=== PATIENT | female | born 1945 | race Two or more races ===

== ENCOUNTER → 2016-12-10 | Outpatient (CLI) | payer MEDICARE, OTHER ==
--- NOTE | 2016-12-10 09:57 | RADRPT ---
PROCEDURE: XR pelvis/right hip. CLINICAL INDICATION: Hip pain TECHNIQUE: AP pelvis/AP and lateral right hip view performed COMPARISON: No prior studies are available for comparison. FINDINGS: There is severe right hip osteoarthrosis and moderate to severe left hip osteoarthrosis. This is ass ociated with joint space narrowing, subchondral sclerosis , subchondral cyst formation and osteophyt osis. There is normal mineralization. No fractures or osseous lesions are identified. The soft ti ssues are unremarkable. IMPRESSION: Severe right hip osteoarthrosis. Moderate to severe left hip osteoarthrosis RPTAT: HGDB .Markus Corona MD, Date Time Electronically viewed and signed by .Markus Corona MD, on 12/10/2016 09:56 .B/
== END | disposition home or self-care (01) ==
LOC: HKI 10:21
PROVIDERS: ATTEND Orthopaedic Surgery
DX: M16.0 Bilateral primary osteoarthritis of hip (principal); M25.551 Pain in right hip
CPT/HCPCS: 73502; G0463

== ENCOUNTER → 2017-04-15 | Outpatient (CLI) | payer MEDICARE, OTHER | END | disposition home or self-care (01) | LOC: HKI 09:56 | PROVIDERS: ATTEND Orthopaedic Surgery | DX: M25.551 Pain in right hip (principal); M16.0 Bilateral primary osteoarthritis of hip | CPT/HCPCS: G0463 ==

== ENCOUNTER 2017-04-21 05:44 | Inpatient (IN) | payer MEDICARE, OTHER ==
[~2017-04-21] VITALS: Ht 154.9 cm; Wt 81.8 kg
[2017-04-21] VITALS (66 sets, daily range): BP systolic 72–160; BP diastolic 40–77; PULSE 76–99; RESP 7–22; Ht 154.9 cm; Wt 81.8 kg
[2017-04-21] MEDS ORDERED: CELECOXIB 400 MG PO X1 DOSE PO ONE (06:00)
[2017-04-21] MEDS: LACTATED RINGER'S 1,000 ML IV SCH ×4 (06:00→18:21)
[2017-04-21] MEDS ORDERED: PAIN COCKTAIL - VANCOMYCIN IRR ONE ×7 (06:00)
[2017-04-21] MEDS ORDERED: ONDANSETRON 4 MG INJ IV SCH (06:00)
[2017-04-21] MEDS ORDERED: TRANEXAMIC ACID 740 MG in SOD CHLORIDE 0.9% 100 ML IVPB ONE (06:00)
[2017-04-21] MEDS ORDERED: traMADOL 50 MG TAB X 1 DOSE PO ONE (06:00)
[2017-04-21] MEDS ORDERED: BUPIVACAINE LIPOSOME/PF 266 MG/20 ML VIAL INFIL ONE (06:00)
[2017-04-21] MEDS ORDERED: TRANEXAMIC ACID IV ONE (06:00)
[2017-04-21] MEDS ORDERED: VANCOMYCIN 1 GM/NS 250 ML X1 BEFORE INCISION IVPB ONE (06:00)
[2017-04-21] MEDS ORDERED: PREGABALIN 300 MG PO X1 PO ONE (06:00)
[2017-04-21] MEDS ORDERED: oxyCODONE (CR) 10 MG TAB [oxyCONTIN] X1 DOSE PO ONE (06:00)
[2017-04-21] MEDS ORDERED: SOD CHLORIDE 0.9% IV ONE (06:00)
[2017-04-21] MEDS ORDERED: ONDANSETRON 4 MG INJ IV ONE (06:30)
[2017-04-21] MEDS ORDERED: VANCOMYCIN 1 GM INJ ONE (06:47)
[2017-04-21] MEDS ORDERED: POLYMYXIN B 500000 UNIT INJ ONE (06:47)
[2017-04-21] MEDS ORDERED: SODIUM CL BACTERIOSTATIC 30 ML INJ ONE (06:48)
[2017-04-21] MEDS ORDERED: HEPARIN 1000 UNITS/ML 10 ML INJ ONE (06:51)
[2017-04-21] MEDS ORDERED: BACITRACIN 50000 UNITS INJ ONE (06:52)
[2017-04-21] MEDS ORDERED: ONDANSETRON 4 MG INJ ONE (06:59)
[2017-04-21] MEDS ORDERED: METOCLOPRAMIDE 10 MG INJ ONE (06:59)
[2017-04-21] MEDS ORDERED: ETOMIDATE 20 MG INJ ONE (06:59)
[2017-04-21] MEDS ORDERED: FENTAnyl 50 MCG/ML VIAL ONE (06:59)
[2017-04-21] MEDS ORDERED: ROCURONIUM 50 MG INJ ONE (06:59)
[2017-04-21] MEDS ORDERED: MIDAZOLAM 1 MG/ML 2 ML INJ ONE (06:59)
[2017-04-21] MEDS ORDERED: DEXAMETHASONE 4 MG/ML 1 ML INJ ONE (07:00)
[2017-04-21] MEDS ORDERED: PROPOFOL 100 ML ONE (07:01)
--- NOTE | 2017-04-21 07:20 | HPN ---
Date/Time of Note Date/Time of Note DATE: 04/21/17 TIME: 07:19 Interval H&P Admission Note Pt. seen H&P reviewed: No system changes No changes from H&P on 04/06/17 by SRUTHI Cherry MD Apr 21, 2017 07:20
[2017-04-21] MEDS ORDERED: LOSA100T7 PO (07:34)
[2017-04-21] MEDS ORDERED: PRED1TAB17 PO (07:34)
[2017-04-21] MEDS ORDERED: HYDROmorphONE 2 MG/ML SYG ONE (07:56)
[2017-04-21] MEDS ORDERED: DIPHENHYDRAMINE 50 MG INJ IV PRN (09:30)
[2017-04-21] MEDS ORDERED: ONDANSETRON 4 MG INJ IV PRN ×2 (09:30→10:30)
[2017-04-21] MEDS ORDERED: MEPERIDINE 25 MG INJ IV PRN (09:30)
[2017-04-21] MEDS ORDERED: METOCLOPRAMIDE 10 MG INJ IV PRN (09:30)
[2017-04-21] MEDS ORDERED: EXPAREL NOTE (BUPIVICAINE LIPOSOMAL) XX SCH (09:30)
[2017-04-21] MEDS ORDERED: HYDROmorphONE (0.2 MG/ML) 10ML SYG IV PRN ×3 (09:30)
--- NOTE | 2017-04-21 10:21 | OPR ---
Date/Time of Note Date/Time of Note DATE: 04/21/17 TIME: 10:20 Operative Report Preoperative Diagnosis Right Hip OA Postoperative Diagnosis Same Operation/Procedure Performed Right SHANIQUE Surgeon: SRUTHI CUENCA MD care assistant: TOM HERNANDEZ Anesthesia: general, spinal Estimated Blood Loss: other Specimens Femoral Head Grafts/Implants Depuy SHANIQUE Complications: None SRUTHI CUENCA MD Apr 21, 2017 10:21
[2017-04-21] MEDS ORDERED: HYDROmorphONE 1 MG/ML SYG IV PRN (10:30)
[2017-04-21] MEDS ORDERED: ASPIRIN (EC) 325 MG TAB PO ONE (10:30)
[2017-04-21] MEDS ORDERED: MAGNESIUM HYDROXIDE 30ML CUP PO PRN (10:30)
[2017-04-21] MEDS ORDERED: NA PHOSPHATE/BIPHOS 133 ML ENEMA PR PRN (10:30)
[2017-04-21] MEDS ORDERED: NACL 0.9% 3 ML SYG IV SCH (10:30)
[2017-04-21] MEDS ORDERED: BISACODYL 10 MG SUPP PR PRN (10:30)
[2017-04-21] MEDS ORDERED: DIPHENHYDRAMINE 25 MG CAP PO PRN (10:30)
[2017-04-21 11:02] LABS: HEMOGLOBIN 9.7 g/dl (12.0-16.0)
[2017-04-21] MEDS ORDERED: EPHEDrine SULFATE 50 MG/5 ML SYG ONE (11:16)
--- NOTE | 2017-04-21 11:46 | RADRPT ---
PROCEDURE: Intraoperative imaging of the right hip with fluoroscopy. CLINICAL INDICATION: Right hip pain. Intraoperative. TECHNIQUE: 2 images of the right hip were obtained in the operating room with portable equipment. COMPARISON: No prior study is available for comparison. FINDINGS: Images demonstrate components of the right hip total arthroplasty. IMPRESSION: 1. Satisfactory intraoperative imaging of the right hip. RPTAT: QQ .Anastacio Cat MD, MD Date Time Electronically viewed and signed by .Anastacio Cat MD, on 04/21/2017 11:45 .R/
[2017-04-21] MEDS: ACETAMINOPHEN 1000MG/100ML IV 100 ML IVPB SCH ×2 (12:29→18:04)
[2017-04-21] MEDS: traMADol 50 MG TAB PO SCH ×2 (12:39→13:44)
[2017-04-21 12:51] LABS: CALCIUM 9.3 mg/dl (8.4-10.2); CREATININE 0.65 mg/dl (0.44-1.00); POTASSIUM 3.2 mmol/L (3.5-5.1)
--- NOTE | 2017-04-21 12:56 | RADRPT ---
PROCEDURE: XR pelvis CLINICAL INDICATION: Postop TECHNIQUE: AP pelvis is available for review. COMPARISON: None available FINDINGS: A non cemented right hip hemiarthroplasty arthroplasty is present in near anatomic alignment without acute radiographic abnormality. Recent surgical changes seen in the soft tissues. IMPRESSION: 1. A noncemented right hip hemiarthroplasty in near anatomic alignment without acute radiographic a bnormality RPTAT: HH .Filipe Christie MD, MD Date Time Electronically viewed and signed by .Filipe Christie MD, MD on 04/21/2017 12:55 .d/
[2017-04-21] MEDS ORDERED: NALOXONE (0.4 MG/ML) INJ ONE ×3 (13:19→13:52)
--- NOTE | 2017-04-21 13:21 | PN ---
Date/Time of Note Date/Time of Note DATE: 04/21/17 TIME: 13:19 Assessment/Plan Lines/Catheters IV Catheter Type (from Nrsg): Peripheral IV Veronica in Place (from Nrsg): Yes Assessment/Plan Assessment/Plan S/P Right SHANIQUE. Stable. -Drain -ABX -Pain meds -ASA/SCDs -OOB with PT -Hip precautions -Abduction pillow Subjective 24 Hr Interval Summary Resting comfortably. Minimal pain. Exam/Review of Systems Vital Signs Vitals Vital Signs Date Time Temp Pulse Resp B/P Pulse Ox O2 Delivery O2 Flow Rate FiO2 04/21/17 11:56 97.4 04/21/17 11:55 84 20 72/46 93 Nasal Cannula 2.0 Exam Free Text/Dictation Hemovac: 30 cc Leg lengths equal Dressing dry Thigh soft 5/5 Quadriceps, Tibialis Anterior, EHL, Gastroc Soleus, Peroneals Normal sensation Palpable DP/PT, CR < 2 Sec No distal edema XRAYS: Right SHANIQUE in good position. Head located in acetabulum. Results Result Diagram: 04/21/17 1050 04/21/17 1050 SRUTHI CUENCA MD Apr 21, 2017 13:20
--- NOTE | 2017-04-21 13:25 | CONS ---
Date/Time of Note Date/Time of Note DATE: 04/21/17 TIME: 13:18 Assessment/Plan Assessment/Plan Additional Assessment/Plan 1. Post op right hip replacement. 2. HBP 3. Reduced respiratory rate, if persists after narcan is given will need icu monitoring, ABG ordered 4. Hx CLL 5. Hx PMR was on steroids, was given Decadron perioperatively 6. Hx carotid dz and bilateral carotid endartectomy 7. [place] preop revealed no ischemia 8. K was low, will repelete Consultation Date/Type/Reason Admit Date/Time Apr 21, 2017 at 05:44 Date of Consultation: Apr 21, 2017 Type of Consultation: Medical Reason for Consultation Post op right hip replacement Subjective hx not possible: other (lethargic, easily arroused) Respiratory: No cough, No shortness of breath Cardiovascular: No chest pain Gastrointestinal: no complaints Past Surgical History Past Surgical Hx: other (Hx bilateral carotid dz, s/p surgery, HBP, Fibromyalgia, Hyperlipidemia, CLL) Social History Smoking Status: Never smoker Exam/Review of Systems Vital Signs Vitals Vital Signs Date Time Temp Pulse Resp B/P Pulse Ox O2 Delivery O2 Flow Rate FiO2 04/21/17 11:56 97.4 04/21/17 11:55 84 20 72/46 93 Nasal Cannula 2.0 Exam Neck: No jvd Respiratory: clear to auscultation Cardiovascular: regular rate and rhythm Gastrointestinal: soft Extremities: No edema (and no calf tend) Results Result Diagram: 04/21/17 1050 04/21/17 1050 Results 24 hrs Laboratory Tests Test 04/21/17 10:50 Hemoglobin 9.7 L Hematocrit 30.0 L Sodium Level 141 Potassium Level 3.2 L Chloride Level 106 Carbon Dioxide Level 23 Anion Gap 15 Blood Urea Nitrogen 21 H Creatinine 0.65 Glucose Level 198 Calcium Level 9.3 Medications Medications Current Medications Lactated Ringer's (Lr) 1,000 ml @ 100 mls/hr Q10H IV ; Start 04/21/17 at 06:00 ; Stop 04/21/17 at 22:00 Miscellaneous Information 1 ea NOTE XX ; Start 04/21/17 at 09:30; Stop 04/21/17 at 22:00 Ondansetron HCl (Zofran Inj) 4 mg ONCE IV ; Start 04/21/17 at 06:00; Stop at 20:00 Losartan Potassium (Cozaar) 100 mg DAILY PO ; Start 04/22/17 at 09:00 Prednisone 1.5 mg 1.5 mg DAILY PO ; Start 04/22/17 at 09:00 Lactated Ringer's (Lr) 1,000 ml @ 125 mls/hr Q8H IV Last administered on 11:13; Admin Dose 125 MLS/HR; Start 04/21/17 at 10:21 Celecoxib 200 mg 200 mg DAILY PO ; Start 04/22/17 at 09:00 Acetaminophen (Ofirmev 1000mg/ 100ml Iv) 100 ml @ 400 mls/hr Q6 IVPB Last administered on 04/21/17 12:29; Admin Dose 400 MLS/HR; Start 04/21/17 at 12:00 ; Stop 04/22/17 at 11:59 Tramadol HCl (Ultram) 50 mg Q6 PO Last administered on 04/21/17 12:39; Admin Dose 50 MG; Start 04/21/17 at 12:00; Stop 04/24/17 at 11:59 Oxycodone HCl (Roxicodone) 5 mg Q4H PRN PO PAIN LEVEL 1-3; Start 04/21/17 at 10 :30 Oxycodone HCl (Roxicodone) 10 mg Q4H PRN PO PAIN LEVEL 4-7; Start 04/21/17 at 10:30 Hydromorphone HCl 1 mg 1 mg Q3H PRN IV PAIN LEVEL 8-10; Start 04/21/17 at 10:30 Vancomycin HCl (Vancocin) 250 ml @ 125 mls/hr Q12 IVPB ; Start 04/21/17 at 21: 00; Stop 04/22/17 at 10:59 Ondansetron HCl (Zofran Inj) 4 mg Q6H PRN IV NAUSEA AND/OR VOMITING; Start at 10:30 Bisacodyl (Dulcolax Supp) 10 mg Q12H PRN [place] CONSTIPATION; Start 04/21/17 at 10: 30 Magnesium Hydroxide (Milk Of Mag) 30 ml BID PRN PO CONSTIPATION; Start at 10:30 Sodium Biphosphate/ Sodium Phosphate (Fleet Enema) 133 ml DAILY PRN [place] CONSTIPATION; Start 04/21/17 at 10:30 Docusate Sodium (Colace) 100 mg BID PO ; Start 04/21/17 at 21:00 Diphenhydramine HCl (Benadryl) 25 mg Q6H PRN PO PRURITUS; Start 04/21/17 at 10: 30 Aspirin (Ecotrin) 325 mg BID PO ; Start 04/22/17 at 09:00 Pantoprazole (Protonix Tab) 40 mg BID@06,18 PO ; Start 04/21/17 at 18:00 JOANN MALONE MD Apr 21, 2017 13:25
[2017-04-21] MEDS ORDERED: NALOXONE (0.4 MG/ML) INJ IV STA (13:30)
[2017-04-21] MEDS ORDERED: POTASSIUM CHLORIDE 20 MEQ POWDER FOR ORAL SOLN PO SCH (13:30)
[2017-04-21 13:58] LABS: AADO2 Arterial 96.6 mmHg (7.0-24.0); Allen Test ACCEPTAB; Arterial Base Excess -0.9 mmol/L (-3.0-3); Arterial COHb 0.3 % (0.0-3.0); Arterial Fraction of Oxyhgb 98.2 % (93.0-99.0); Arterial HCO3 24.4 mmol/L (22.0-26.0); Arterial MetHb 0.3 % (0.0-1.5); Arterial Total Hemglobin 10.4 g/dl (12.0-18.0); MODE MASK - SIMPLE
[2017-04-21] MEDS ORDERED: POTASSIUM CHLORIDE 250 ML IVPB ONE (14:30)
--- NOTE | 2017-04-21 14:47 | CONS ---
Date/Time of Note Date/Time of Note DATE: 04/21/17 TIME: 14:43 Assessment/Plan Assessment/Plan Additional Assessment/Plan ABG was reviewed done a short while ago which is not showing any evidence of hypercapnia. Assessment recommendations; 1. Patient admitted for right hip surgery then developed. Hypoventilation with interval improvement. 2. History of seizure, hypertension, fibromyalgia, chronic steroid use. Patient to be transferred to ICU. I would recommend starting on BiPAP 10/5 with a backup rate of 18. Continue current medications. Consultation Date/Type/Reason Admit Date/Time Apr 21, 2017 at 05:44 Date of Consultation: Apr 21, 2017 Type of Consultation: Pulmonary/critical care Reason for Consultation Pulmonary consultation requested for evaluation of postop hypoventilation. History of presenting any; patient is a pleasant 71-year-old white lady who was admitted for elective right hip surgery. The patient surgery was uneventful however. The patient became mildly hypoxemic causing O2 desaturation patient was given Narcan with significant improvement in mental status. By the time I saw the patient the patient is on simple facemask and is able to talk and give some history by herself, she denies any shortness of breath. Any chest pain. Nausea vomiting. Past medical history; 1. Patient with a history of CLL. 2. Fibromyalgia. 3. History of bilateral carotid endarterectomy. 4. Hyperlipidemia. 5. Hypertension. Medications; reviewed. Allergies; penicillin. Social history; patient never smoked. Family history; noncontributory. Occupational history; currently not available. Review of systems; limited review of system could be obtained. Patient denies any headache, any nausea vomiting. Denies any shortness of breath. General exam; elderly woman, awake alert currently in no distress. Respiratory: No cough, No shortness of breath Cardiovascular: No chest pain Gastrointestinal: no complaints Past Surgical History Past Surgical Hx: other (Hx bilateral carotid dz, s/p surgery, HBP, Fibromyalgia, Hyperlipidemia, CLL) Social History Smoking Status: Never smoker Exam/Review of Systems Vital Signs Vitals Vital Signs Date Time Temp Pulse Resp B/P Pulse Ox O2 Delivery O2 Flow Rate FiO2 04/21/17 14:23 Simple Mask 8.0 04/21/17 12:20 84 14 105/44 97 04/21/17 11:56 97.4 Exam HEENT exam; supple neck, no JVD. No lymphadenopathy. Midline trachea. No thyromegaly. Patient has fair dentition. Pupils are midsize and reactive to light bilaterally. Chest exam; diminished but clear breath sound. S1-S2 audible, no murmurs. Regular rhythm. Abdomen exam is; soft, nontender. No organomegaly. Bowel sounds audible. Extremity exam; is a dressing applied over the right hip area. No peripheral edema. Pulses 1+ bilaterally. No clubbing. [employer] examination; no focal motor deficit. Results Result Diagram: 04/21/17 1050 04/21/17 1050 Results 24 hrs Laboratory Tests Test 04/21/17 10:50 04/21/17 13:15 Hemoglobin 9.7 L Hematocrit 30.0 L Sodium Level 141 Potassium Level 3.2 L Chloride Level 106 Carbon Dioxide Level 23 Anion Gap 15 Blood Urea Nitrogen 21 H Creatinine 0.65 Glucose Level 198 Calcium Level 9.3 Blood Gas Specimen Source Blood arterial Arterial Blood Date Drawn 04/21/2017 1:40:05 PM Arterial Blood pH (Temp corrected) 7.371 Arterial Blood pCO2 (Temp correct) 43.0 Arterial Blood pO2 (Temp corrected) 175.3 H Arterial Blood HCO3 24.4 Arterial Blood Base Excess -0.9 Arterial Blood Oxygen Saturation 98.8 Sriram Test ACCEPTAB Arterial Blood Gas Puncture Site Right Radial Arterial Blood Carboxyhemoglobin 0.3 Arterial Blood Methemoglobin 0.3 Blood Gas A-a O2 Differential 96.6 H Oxyhemoglobin Percent 98.2 Total Hemoglobin 10.4 L Blood Gas Temperature 37.0 Blood Gas Modality MASK - SIMPLE FiO2 45.0 Blood Gas Notified Whom JLD Blood Gas Notified Time 04/21/2017 1:58:08 PM Medications Medications Current Medications Lactated Ringer's (Lr) 1,000 ml @ 100 mls/hr Q10H IV ; Start 04/21/17 at 06:00 ; Stop 04/21/17 at 22:00 Miscellaneous Information 1 ea NOTE XX ; Start 04/21/17 at 09:30; Stop 04/21/17 at 22:00 Ondansetron HCl (Zofran Inj) 4 mg ONCE IV ; Start 04/21/17 at 06:00; Stop at 20:00 Losartan Potassium (Cozaar) 100 mg DAILY PO ; Start 04/22/17 at 09:00 Prednisone 1.5 mg 1.5 mg DAILY PO ; Start 04/22/17 at 09:00 Lactated Ringer's (Lr) 1,000 ml @ 125 mls/hr Q8H IV Last administered on 11:13; Admin Dose 125 MLS/HR; Start 04/21/17 at 10:21 Celecoxib 200 mg 200 mg DAILY PO ; Start 04/22/17 at 09:00 Acetaminophen (Ofirmev 1000mg/ 100ml Iv) 100 ml @ 400 mls/hr Q6 IVPB Last administered on 04/21/17 12:29; Admin Dose 400 MLS/HR; Start 04/21/17 at 12:00 ; Stop 04/22/17 at 11:59 Tramadol HCl (Ultram) 50 mg Q6 PO Last administered on 04/21/17 12:39; Admin Dose 50 MG; Start 04/21/17 at 12:00; Stop 04/24/17 at 11:59 Oxycodone HCl (Roxicodone) 5 mg Q4H PRN PO PAIN LEVEL 1-3; Start 04/21/17 at 10 :30 Oxycodone HCl (Roxicodone) 10 mg Q4H PRN PO PAIN LEVEL 4-7; Start 04/21/17 at 10:30 Hydromorphone HCl 1 mg 1 mg Q3H PRN IV PAIN LEVEL 8-10; Start 04/21/17 at 10:30 Vancomycin HCl (Vancocin) 250 ml @ 125 mls/hr Q12 IVPB ; Start 04/21/17 at 21: 00; Stop 04/22/17 at 10:59 Ondansetron HCl (Zofran Inj) 4 mg Q6H PRN IV NAUSEA AND/OR VOMITING; Start at 10:30 Bisacodyl (Dulcolax Supp) 10 mg Q12H PRN [place] CONSTIPATION; Start 04/21/17 at 10: 30 Magnesium Hydroxide (Milk Of Mag) 30 ml BID PRN PO CONSTIPATION; Start at 10:30 Sodium Biphosphate/ Sodium Phosphate (Fleet Enema) 133 ml DAILY PRN [place] CONSTIPATION; Start 04/21/17 at 10:30 Docusate Sodium (Colace) 100 mg BID PO ; Start 04/21/17 at 21:00 Diphenhydramine HCl (Benadryl) 25 mg Q6H PRN PO PRURITUS; Start 04/21/17 at 10: 30 Aspirin (Ecotrin) 325 mg BID PO ; Start 04/22/17 at 09:00 Pantoprazole 40 mg 40 mg BID@06,18 PO ; Start 04/21/17 at 18:00 Potassium Chloride (KCl 40 MEQ/250 ML NS) 250 ml @ 62.5 mls/hr ONCE ONCE IVPB ; Start 04/21/17 at 14:30; Stop 04/21/17 at 18:29 Potassium Chloride (Potassium Chloride Pwd/Soln) 40 meq ONCE PO ; Start at 13:30; Stop 04/21/17 at 23:59 REGLA GRIJALVA Apr 21, 2017 14:47
[2017-04-21] MEDS ORDERED: SOD CHLORIDE 0.9% 500 ML IV ONE (16:30)
[2017-04-21] MEDS: PANTOPRAZOLE (EC) 40 MG TAB PO SCH (18:00)
[2017-04-21] MEDS: DOCUSATE SODIUM 100 MG CAP PO SCH (21:00)
[2017-04-21] MEDS: VANCOMYCIN 1 GM (PMX) 250 ML IVPB SCH (21:21)
[2017-04-22] VITALS (31 sets, daily range): BP systolic 86–147; BP diastolic 35–95; PULSE 73–94; RESP 8–18
[2017-04-22] MEDS: ACETAMINOPHEN 1000MG/100ML IV 100 ML IVPB SCH ×2 (00:20→06:26)
[2017-04-22] MEDS: LACTATED RINGER'S 1,000 ML IV SCH (02:25)
[2017-04-22 05:31] LABS: HEMATOCRIT 26.7 % (37.0-47.0)
[2017-04-22 05:32] LABS: CALCIUM 8.8 mg/dl (8.4-10.2); CREATININE 0.71 mg/dl (0.44-1.00)
[2017-04-22 05:37] LABS: MAGNESIUM 1.7 mg/dl (1.7-2.5); PHOSPHORUS 4.6 mg/dl (2.5-4.9)
[2017-04-22] MEDS: PANTOPRAZOLE (EC) 40 MG TAB PO SCH ×2 (06:26→18:11)
[2017-04-22] MEDS: traMADol 50 MG TAB PO SCH ×5 (06:26→23:37)
--- NOTE | 2017-04-22 07:53 | CONS ---
Date/Time of Note Date/Time of Note DATE: 04/22/17 TIME: 07:51 Assessment/Plan Assessment/Plan Additional Assessment/Plan 1. Doing well post op right hip replacement. 2. Respiratory status now nl 3. BP is controlled 4. Can transfer to ortho floor Consultation Date/Type/Reason Admit Date/Time Apr 21, 2017 at 05:44 Initial Consult Date 04/21/17 Type of Consultation: Pulmonary/critical care Detailed Summary Respiratory: No cough, No shortness of breath Cardiovascular: No chest pain, No lightheadedness Gastrointestinal: no complaints Genitourinary: other (lópez in place) Musculoskeletal: bone/joint pain (mild righjt hip pain) Exam/Review of Systems Vital Signs Vitals Vital Signs Date Time Temp Pulse Resp B/P Pulse Ox O2 Delivery O2 Flow Rate FiO2 04/22/17 06:30 90 15 123/95 100 Nasal Cannula 04/22/17 04:30 2.0 04/22/17 04:00 98.0 04/22/17 03:35 30 Intake and Output 04/21/17 04/21/17 04/22/17 15:00 23:00 07:00 Intake Total 2025 ml 1175 ml 1275 ml Output Total 820 ml 460 ml 360 ml Balance 1205 ml 715 ml 915 ml Exam Neck: No jvd Respiratory: clear to auscultation Gastrointestinal: soft Extremities: No tenderness (bilat, trace pedal edema bilat) Results Result Diagram: 04/22/17 0400 04/22/17 0400 Results 24 hrs Laboratory Tests Test 04/21/17 10:50 04/21/17 13:15 04/22/17 04:00 04/22/17 05:50 Hemoglobin 9.7 L 8.0 L Hematocrit 30.0 L 26.7 L Sodium Level 141 137 Potassium Level 3.2 L 5.0 Chloride Level 106 105 Carbon Dioxide Level 23 25 Anion Gap 15 12 Blood Urea Nitrogen 21 H 20 Creatinine 0.65 0.71 Glucose Level 198 108 # Calcium Level 9.3 8.8 Blood Gas Specimen Source Blood arterial Arterial Blood Date Drawn 04/21/2017 1:40:05 PM Arterial Blood pH (Temp corrected) 7.371 Arterial Blood pCO2 (Temp correct) 43.0 Arterial Blood pO2 (Temp corrected) 175.3 H Arterial Blood HCO3 24.4 Arterial Blood Base Excess -0.9 Arterial Blood Oxygen Saturation 98.8 Sriram Test ACCEPTAB Arterial Blood Gas Puncture Site Right Radial Arterial Blood Carboxyhemoglobin 0.3 Arterial Blood Methemoglobin 0.3 Blood Gas A-a O2 Differential 96.6 H Oxyhemoglobin Percent 98.2 Total Hemoglobin 10.4 L Blood Gas Temperature 37.0 Blood Gas Modality MASK - SIMPLE FiO2 45.0 Blood Gas Notified Whom JLD Blood Gas Notified Time 04/21/2017 1:58:08 PM Phosphorus Level 4.6 Magnesium Level 1.7 Lab Scanned Report REFERENCE LAB Medications Medications Current Medications Losartan Potassium (Cozaar) 100 mg DAILY PO ; Start 04/22/17 at 09:00 Prednisone 1.5 mg 1.5 mg DAILY PO ; Start 04/22/17 at 09:00 Lactated Ringer's (Lr) 1,000 ml @ 125 mls/hr Q8H IV Last administered on 02:25; Admin Dose 125 MLS/HR; Start 04/21/17 at 10:21 Celecoxib 200 mg 200 mg DAILY PO ; Start 04/22/17 at 09:00 Acetaminophen (Ofirmev 1000mg/ 100ml Iv) 100 ml @ 400 mls/hr Q6 IVPB Last administered on 04/22/17 06:26; Admin Dose 400 MLS/HR; Start 04/21/17 at 12:00 ; Stop 04/22/17 at 11:59 Tramadol HCl (Ultram) 50 mg Q6 PO Last administered on 04/22/17 06:26; Admin Dose 50 MG; Start 04/21/17 at 12:00; Stop 04/24/17 at 11:59 Oxycodone HCl (Roxicodone) 5 mg Q4H PRN PO PAIN LEVEL 1-3; Start 04/21/17 at 10 :30 Oxycodone HCl (Roxicodone) 10 mg Q4H PRN PO PAIN LEVEL 4-7; Start 04/21/17 at 10:30 Hydromorphone HCl 1 mg 1 mg Q3H PRN IV PAIN LEVEL 8-10; Start 04/21/17 at 10:30 Vancomycin HCl (Vancocin) 250 ml @ 125 mls/hr Q12 IVPB Last administered on 21:21; Admin Dose 125 MLS/HR; Start 04/21/17 at 21:00; Stop 04/22/17 at 10:59 Ondansetron HCl (Zofran Inj) 4 mg Q6H PRN IV NAUSEA AND/OR VOMITING; Start at 10:30 Bisacodyl (Dulcolax Supp) 10 mg Q12H PRN [place] CONSTIPATION; Start 04/21/17 at 10: 30 Magnesium Hydroxide (Milk Of Mag) 30 ml BID PRN PO CONSTIPATION; Start at 10:30 Sodium Biphosphate/ Sodium Phosphate (Fleet Enema) 133 ml DAILY PRN [place] CONSTIPATION; Start 04/21/17 at 10:30 Docusate Sodium (Colace) 100 mg BID PO ; Start 04/21/17 at 21:00 Diphenhydramine HCl (Benadryl) 25 mg Q6H PRN PO PRURITUS; Start 04/21/17 at 10: 30 Aspirin (Ecotrin) 325 mg BID PO ; Start 04/22/17 at 09:00 Pantoprazole (Protonix Tab) 40 mg BID@,18 PO Last administered on 04/22/17t 06:26; Admin Dose 40 MG; Start 04/21/17 at 18:00 JOANN MALONE MD Apr 22, 2017 07:53
[2017-04-22] MEDS: LOSARTAN 50 MG TAB PO SCH (09:00)
--- NOTE | 2017-04-22 09:02 | PN ---
Date/Time of Note Date/Time of Note DATE: 04/22/17 TIME: 09:00 Assessment/Plan Lines/Catheters IV Catheter Type (from Nrsg): Peripheral IV Veronica in Place (from Nrsg): Yes Assessment/Plan Assessment/Plan POD # 1. Stable. -Drain removed -Ok to transfer to [address] [place] [address] with PT -Hip precautions -Pain meds -ASA/SCDs -D/C planning (To [facility] in next 2 days) Subjective 24 Hr Interval Summary Was in ICU overnight because of low respiratiory rate. Now doing well. No events overnight. Minimal pain. Exam/Review of Systems Vital Signs Vitals Vital Signs Date Time Temp Pulse Resp B/P Pulse Ox O2 Delivery O2 Flow Rate FiO2 04/22/17 07:56 100 2.0 04/22/17 06:30 90 15 123/95 Nasal Cannula 04/22/17 04:00 98.0 04/22/17 03:35 30 Intake and Output 04/21/17 04/21/17 04/22/17 15:00 23:00 07:00 Intake Total 2025 ml 1175 ml 1275 ml Output Total 820 ml 460 ml 360 ml Balance 1205 ml 715 ml 915 ml Exam Free Text/Dictation Hemovac: 170 Dressing dry Thigh soft 5/5 Quadriceps, Tibialis Anterior, EHL, Gastroc Soleus, Peroneals Normal sensation Palpable DP/PT, CR < 2 Sec No distal edema Results Result Diagram: 04/22/1739904/22/17399 SRUTHI CUENCA MD Apr 22, 2017 09:02
[2017-04-22] MEDS: ASPIRIN (EC) 325 MG TAB PO SCH ×2 (09:16→20:23)
[2017-04-22] MEDS: DOCUSATE SODIUM 100 MG CAP PO SCH ×2 (09:16→20:23)
[2017-04-22] MEDS: predniSONE 1 MG TAB PO SCH (09:16)
[2017-04-22] MEDS: CELECOXIB 200 MG CAP PO SCH (09:17)
[2017-04-22] MEDS: VANCOMYCIN 1 GM (PMX) 250 ML IVPB SCH (09:32)
--- NOTE | 2017-04-22 10:30 | CONS ---
Date/Time of Note Date/Time of Note DATE: 04/22/17 TIME: 10:28 Assessment/Plan Assessment/Plan Additional Assessment/Plan Assessment recommendations; 1. Patient admitted for elective right total hip replacement patient developed hypoxemia and hypoventilation postop was transferred to ICU maintained on BiPAP with marked overall clinical improvement no. 2. Multiple other comorbidities including seizure disorder, hypertension, fibromyalgia and mild chronic steroid use. Continue current treatment. Patient can be transferred to the medical floor. Consultation Date/Type/Reason Admit Date/Time Apr 21, 2017 at 05:44 Initial Consult Date 04/21/17 Type of Consultation: Pulmonary/critical care 24 HR Interval Summary Free Text/Dictation Patient condition is markedly improved. She is completely awake alert. Has required intermittent BiPAP overnight. No maintained on nasal cannula. Patient denies any shortness of breath. General examination; elderly woman, awake alert currently in no distress. Exam/Review of Systems Vital Signs Vitals Vital Signs Date Time Temp Pulse Resp B/P Pulse Ox O2 Delivery O2 Flow Rate FiO2 04/22/17 08:00 79 04/22/17 07:56 100 2.0 04/22/17 06:30 15 123/95 Nasal Cannula 04/22/17 04:00 98.0 04/22/17 03:35 30 Intake and Output 04/21/17 04/21/17 04/22/17 14:59 22:59 06:59 Intake Total 2025 ml 800 ml 1650 ml Output Total 770 ml 460 ml 410 ml Balance 1255 ml 340 ml 1240 ml Exam HEENT exam is; supple neck, no JVD. No lymphadenopathy. Midline trachea. No thyromegaly. Patient bilateral well-healed carotid scars. Dentition is fair. Pupils are small bilaterally. Chest examined; clear to ulceration. S1-S2 audible, no murmurs. Regular rhythm. Abdomen exam; soft, nontender. No organomegaly. Bowel sounds audible. Extremity exam; no peripheral edema. There is a dressing applied over the right hip area. Pulses 1+ bilaterally. [employer] examination; no deficit. Results Result Diagram: 04/22/17 0400 04/22/17 0400 Results 24 hrs Laboratory Tests Test 04/21/17 10:50 04/21/17 13:15 04/22/17 04:00 04/22/17 05:50 Hemoglobin 9.7 L 8.0 L Hematocrit 30.0 L 26.7 L Sodium Level 141 137 Potassium Level 3.2 L 5.0 Chloride Level 106 105 Carbon Dioxide Level 23 25 Anion Gap 15 12 Blood Urea Nitrogen 21 H 20 Creatinine 0.65 0.71 Glucose Level 198 108 # Calcium Level 9.3 8.8 Blood Gas Specimen Source Blood arterial Arterial Blood Date Drawn 04/21/2017 1:40:05 PM Arterial Blood pH (Temp corrected) 7.371 Arterial Blood pCO2 (Temp correct) 43.0 Arterial Blood pO2 (Temp corrected) 175.3 H Arterial Blood HCO3 24.4 Arterial Blood Base Excess -0.9 Arterial Blood Oxygen Saturation 98.8 Sriram Test ACCEPTAB Arterial Blood Gas Puncture Site Right Radial Arterial Blood Carboxyhemoglobin 0.3 Arterial Blood Methemoglobin 0.3 Blood Gas A-a O2 Differential 96.6 H Oxyhemoglobin Percent 98.2 Total Hemoglobin 10.4 L Blood Gas Temperature 37.0 Blood Gas Modality MASK - SIMPLE FiO2 45.0 Blood Gas Notified Whom JLD Blood Gas Notified Time 04/21/2017 1:58:08 PM Phosphorus Level 4.6 Magnesium Level 1.7 Lab Scanned Report REFERENCE LAB Medications Medications Current Medications Losartan Potassium (Cozaar) 100 mg DAILY PO ; Start 04/22/17 at 09:00 Prednisone 1.5 mg 1.5 mg DAILY PO Last administered on 04/22/17 09:16; Admin Dose 1.5 MG; Start 04/22/17 at 09:00 Lactated Ringer's (Lr) 1,000 ml @ 125 mls/hr Q8H IV Last administered on 02:25; Admin Dose 125 MLS/HR; Start 04/21/17 at 10:21 Celecoxib 200 mg 200 mg DAILY PO Last administered on 04/22/17 09:17; Admin Dose 200 MG; Start 04/22/17 at 09:00 Acetaminophen (Ofirmev 1000mg/ 100ml Iv) 100 ml @ 400 mls/hr Q6 IVPB Last administered on 04/22/17 06:26; Admin Dose 400 MLS/HR; Start 04/21/17 at 12:00 ; Stop 04/22/17 at 11:59 Tramadol HCl (Ultram) 50 mg Q6 PO Last administered on 04/22/17 06:26; Admin Dose 50 MG; Start 04/21/17 at 12:00; Stop 04/24/17 at 11:59 Oxycodone HCl (Roxicodone) 5 mg Q4H PRN PO PAIN LEVEL 1-3; Start 04/21/17 at 10 :30 Oxycodone HCl (Roxicodone) 10 mg Q4H PRN PO PAIN LEVEL 4-7; Start 04/21/17 at 10:30 Hydromorphone HCl 1 mg 1 mg Q3H PRN IV PAIN LEVEL 8-10; Start 04/21/17 at 10:30 Vancomycin HCl (Vancocin) 250 ml @ 125 mls/hr Q12 IVPB Last administered on 09:32; Admin Dose 125 MLS/HR; Start 04/21/17 at 21:00; Stop 04/22/17 at 10:59 Ondansetron HCl (Zofran Inj) 4 mg Q6H PRN IV NAUSEA AND/OR VOMITING; Start at 10:30 Bisacodyl (Dulcolax Supp) 10 mg Q12H PRN [place] CONSTIPATION; Start 04/21/17 at 10: 30 Magnesium Hydroxide (Milk Of Mag) 30 ml BID PRN PO CONSTIPATION; Start at 10:30 Sodium Biphosphate/ Sodium Phosphate (Fleet Enema) 133 ml DAILY PRN [place] CONSTIPATION; Start 04/21/17 at 10:30 Docusate Sodium (Colace) 100 mg BID PO Last administered on 04/22/17 09:16; Admin Dose 100 MG; Start 04/21/17 at 21:00 Diphenhydramine HCl (Benadryl) 25 mg Q6H PRN PO PRURITUS; Start 04/21/17 at 10: 30 Aspirin (Ecotrin) 325 mg BID PO Last administered on 04/22/17 09:16; Admin Dose 325 MG; Start 04/22/17 at 09:00 Pantoprazole (Protonix Tab) 40 mg BID@06,18 PO Last administered on 04/22/17 06:26; Admin Dose 40 MG; Start 04/21/17 at 18:00 REGLA GRIJALVA Apr 22, 2017 10:30
--- NOTE | 2017-04-22 13:25 | PN ---
Date/Time of Note Date/Time of Note DATE: 04/22/17 TIME: 13:20 Assessment/Plan VTE Prophylaxis VTE Prophylaxis Intervention: SCD's Lines/Catheters IV Catheter Type (from Nrsg): Saline Lock Urinary Cath still in place: Yes Subjective 24 Hr Interval Summary Free Text/Dictation Anesthesia Note: A 71 year female s/p hip replacement under GA and spinal pod #1is doing fine, has pain 5/10, no n/V, headache, itching, back pain. i was called yesterday when pt was terrance paz that she is hypoventilating with intemittent recovery, i saw the pt. she was awakw,and told me she hasnr slpet and she sleepy and tired, poss sleeep apnea per her son at bed side. per primary care pt was sent to ICU on bipap, ABG normal, no co2 accomulation. pt is going back to floor today Exam/Review of Systems Vital Signs Vitals Vital Signs Date Time Temp Pulse Resp B/P Pulse Ox O2 Delivery O2 Flow Rate FiO2 04/22/17 10:00 81 10 106/46 92 Nasal Cannula 04/22/17 08:00 97.7 04/22/17 07:56 2.0 04/22/17 03:35 30 Intake and Output 04/21/17 04/21/17 04/22/17 15:00 23:00 07:00 Intake Total 2025 ml 1175 ml 1275 ml Output Total 820 ml 460 ml 460 ml Balance 1205 ml 715 ml 815 ml Results Result Diagram: 04/22/17 0400 04/22/17 0400 Results 24 hrs Laboratory Tests Test 04/22/17 04:00 04/22/17 05:50 Hemoglobin 8.0 L Hematocrit 26.7 L Sodium Level 137 Potassium Level 5.0 Chloride Level 105 Carbon Dioxide Level 25 Anion Gap 12 Blood Urea Nitrogen 20 Creatinine 0.71 Glucose Level 108 # Calcium Level 8.8 Phosphorus Level 4.6 Magnesium Level 1.7 Lab Scanned Report REFERENCE LAB Medications Medications Current Medications Losartan Potassium (Cozaar) 100 mg DAILY PO ; Start 04/22/17 at 09:00 Prednisone (Prednisone) 1.5 mg DAILY PO Last administered on 04/22/17t 09:16; Admin Dose 1.5 MG; Start 04/22/17 at 09:00 Celecoxib (Celebrex) 200 mg DAILY PO Last administered on 04/22/17 09:17; Admin Dose 200 MG; Start 04/22/17 at 09:00 Tramadol HCl (Ultram) 50 mg Q6 PO Last administered on 04/22/17 12:59; Admin Dose 50 MG; Start 04/21/17 at 12:00; Stop 04/24/17 at 11:59 Oxycodone HCl (Roxicodone) 5 mg Q4H PRN PO PAIN LEVEL 1-3; Start 04/21/17 at 10 :30 Oxycodone HCl (Roxicodone) 10 mg Q4H PRN PO PAIN LEVEL 4-7; Start 04/21/17 at 10:30 Hydromorphone HCl (Dilaudid) 1 mg Q3H PRN IV PAIN LEVEL 8-10 Last administered on 04/22/17 12:24; Admin Dose 1 MG; Start 04/21/17 at 10:30 Ondansetron HCl (Zofran Inj) 4 mg Q6H PRN IV NAUSEA AND/OR VOMITING; Start at 10:30 Bisacodyl (Dulcolax Supp) 10 mg Q12H PRN [place] CONSTIPATION; Start 04/21/17 at 10: 30 Magnesium Hydroxide (Milk Of Mag) 30 ml BID PRN PO CONSTIPATION; Start at 10:30 Sodium Biphosphate/ Sodium Phosphate (Fleet Enema) 133 ml DAILY PRN [place] CONSTIPATION; Start 04/21/17 at 10:30 Docusate Sodium (Colace) 100 mg BID PO Last administered on 04/22/17 09:16; Admin Dose 100 MG; Start 04/21/17 at 21:00 Diphenhydramine HCl (Benadryl) 25 mg Q6H PRN PO PRURITUS; Start 04/21/17 at 10: 30 Aspirin (Ecotrin) 325 mg BID PO Last administered on 04/22/17 09:16; Admin Dose 325 MG; Start 04/22/17 at 09:00 Pantoprazole (Protonix Tab) 40 mg BID@18 PO Last administered on 04/22/17 06:26; Admin Dose 40 MG; Start 04/21/17 at 18:00 DEMETRICE BERNAL MD Apr 22, 2017 13:25
--- NOTE | 2017-04-22 17:55 | OPR ---
Date/Time of Note Date/Time of Note DATE: 04/22/17 TIME: 17:51 Operative Report Preoperative Diagnosis Right Hip OA Postoperative Diagnosis Same Operation Performed Right SHANIQUE Surgeon: SRUTHI CUENCA MD training assistant: TOM HERNANDEZ Anesthesia: general, spinal Estimated Blood Loss: other Specimens Femoral Head Grafts/Implants Depuy SHANIQUE Complications: None Procedure Description DATE: 04/21/2017 PREOPERATIVE DIAGNOSIS: Right hip osteoarthritis POSTOPERATIVE DIAGNOSIS: Right hip osteoarthritis OPERATION PERFORMED: Right total hip arthroplasty. SURGEON: Sruthi Cuenca MD WALLPAPER INSTALLER: FABI Fraga COMPONENTS USED: Depuy size 50 mm [place] cup, 50/32 neutral Altrx polyethylene liner, size 5 standard [place] stem, 32+5 ceramic head ANESTHESIA: Spinal plus general endotracheal intubation. ESTIMATED BLOOD LOSS: 350 mL INTRAVENOUS FLUIDS: 1,900 mL SPECIMENS: Femoral head. DRAINS: Hemovac x1. COMPLICATIONS: None. DISPOSITION: The patient tolerated the procedure well and was taken to the recovery room in stable condition. INDICATIONS: The patient is a 71-year-old woman who has developed progressively worsening pain in her right hip with radiographic evidence of severe osteoarthritis. She has not improved with nonsurgical means of treatment. I felt the patient would benefit from a total hip arthroplasty through a posterior approach. The risks, benefits, and alternatives of the procedure were explained in detail to the patient. I explained the risks of the surgery to include, but not be limited to, bleeding and possible need for blood transfusion; infections; pain; stiffness; neurovascular injury with possible numbness, weakness, and/or paralysis anywhere from the hip down to the toes; fracture, instability, or dislocation; leg length inequality; wear and/or loosening of the prosthesis and possible need for future revision; blood clots and pulmonary embolism; and anesthetic complications such as heart attack, stroke, GI bleed, pneumonia, and/ or . Ample time was allowed for the patient to ask questions, all of which were addressed and answered. The patient understood the risks involved and wished to proceed. Informed consent was signed prior to the procedure. PROCEDURE: The patient's right hip was initialed with a marking pen in the preoperative area to identify the correct operative site. The patient was brought to the operating room and transferred from the [facility] to the operating table where a spinal anesthesia was administered. The patient was then anesthetized and intubated. A Veronica catheter was placed. A timeout was performed to confirm that the right side was the correct operative site. The patient was given 2 g of Ancef within one hour prior to the procedure. The patient was turned to the lateral decubitus position with the operative side up. An axillary roll was placed under the chest wall. The patient was secured onto the pegboard, and all bony prominences were well padded. The operative hip and lower extremity were prepped and draped in the usual sterile fashion. A posterolateral incision was made centered over the greater trochanter and carried down through subcutaneous tissue and fat with sharp dissection. The iliotibial band and gluteus bj muscle fibers were bluntly split. The trochanteric bursa was incised. The piriformis and conjoined tendon were identified and taken down off the posterior aspect of the greater trochanter and tagged with #2 FiberWire. The synovial fluid was normal in color and consistency. The femoral head was dislocated posteriorly. It was denuded of cartilage circumferentially. A femoral neck osteotomy was made and the femur retracted anteriorly. The remnants of the labrum and ligamentum teres were excised. I then reamed the acetabulum to the medial wall, and then went up by 2 mm increments until I got a good bite and was down to bleeding subchondral bone. The [place] cup was opened and impacted into the acetabulum and sat flush circumferentially, getting a good bite. The trial neutral liner was placed into position. The Aufranc-Caldera guide showed the cup had about 40 to 45 degrees of abduction and 20 degrees of anteversion. Attention was then turned towards the femur. The medial overhanging greater trochanter was removed with a cookie cutter osteotome. The canal was opened, and then the lateralizing reamer was used to take away any remaining overhanging greater trochanter. I then used the tapered reamers to ream the femur, going up in size until I got a good bite. I then broached the femur, maintaining a laterally directed force and keeping the broach anteverted 20 to 25 degrees relative to the tibia pointing toward the ceiling. I increased the broaches by one-size increments until I achieved a solid bite and it sat flush with the neck cut. The trunnion and head were assembled and reduced into the acetabulum. The hip was then taken through range of motion and was quite stable. There was 110 degrees of flexion. At 90 degrees of flexion and neutral abduction, the hip was stable posteriorly to 80 degrees of internal rotation. In the position of sleep, it was stable to 85 degrees of internal rotation. The hip came to full extension, and there was no posterior impingement or instability. The [place] sign showed a combined forward flexion of 45 degrees. Leg lengths were palpated to be equal. Cross-table AP pelvis showed the components to be in good position and leg lengths and offset to be equal. At this point, the trial was dislocated and the trial broach removed. The canal was irrigated and dried. The trial liner was removed. An [place] hole eliminator was placed. The real liner was opened, impacted into the acetabulum, and sat flush circumferentially. The canal was irrigated and dried. The real stem was opened, impacted into the femur, and sat flush with the neck cut. The trunnion was irrigated and dried. The real femoral head was impacted onto the trunnion and reduced into the acetabulum. The hip had the same range of motion and stability as with the trial. The posterior capsule and short external rotators were repaired back to the greater trochanter through drill holes with #2 FiberWire. The quadratus femoris was repaired back to the vastus lateralis with interrupted #1 Vicryl in a figure -of-eight fashion. The sciatic nerve was inspected and noted to be intact, with no undue tension. The soft tissues were infiltrated with a mixture of 150 mg of 0.5% Bupivacaine, 8 mg of Duramorph, 300 mcg of epinephrine, 30 mg of Toradol, 100 mcg of clonidine, 750 mg of cefuroxime and 86 mL of normal saline, followed by an injection of 266 mg of liposomal Bupivacaine. A Hemovac drain was placed in the deep portion of the wound and brought out the anterolateral thigh. At this point the hip was irrigated with a mixture of betadine/saline and then antibiotic saline with pulsatile lavage. The iliotibial band was repaired with interrupted #1 Ethibond in a [id number] fashion. The gluteus bj muscle fascia was repaired with a running #1 Vicryl. The deep fat layer was irrigated and closed with 2-0 Stratafix, the subcutaneous layer closed with 3-0 Vicryl, and peter on the skin. Skin edges were sealed with Dermabond. The drain was secured with 3-0 nylon. The sponge and needle counts were correct at the end of the case. The wound was covered with an occlusive dressing. The patient was awakened, extubated, and taken to the recovery room in stable condition. An assistant sales manager surgeon was necessary in the integral part of the procedure for positioning of the extremity, preparation of the patient before and after the surgical intervention. SRUTHI CUENCA MD Apr 22, 2017 17:55
[2017-04-22] MEDS: oxyCODONE 5 MG TAB PO PRN (20:23)
[2017-04-23] MEDS: oxyCODONE 5 MG TAB PO PRN ×3 (05:30→20:05)
[2017-04-23] MEDS: traMADol 50 MG TAB PO SCH ×3 (06:16→17:39)
[2017-04-23] MEDS: PANTOPRAZOLE (EC) 40 MG TAB PO SCH ×2 (06:16→17:39)
[2017-04-23 08:00] VITALS: BP 109/53; RESP 18
[2017-04-23] MEDS: LOSARTAN 50 MG TAB PO SCH (08:21)
[2017-04-23] MEDS: CELECOXIB 200 MG CAP PO SCH (09:00)
[2017-04-23] MEDS: predniSONE 1 MG TAB PO SCH (09:13)
[2017-04-23] MEDS: ASPIRIN (EC) 325 MG TAB PO SCH ×2 (09:14→20:05)
[2017-04-23] MEDS: DOCUSATE SODIUM 100 MG CAP PO SCH ×2 (09:14→20:05)
--- NOTE | 2017-04-23 11:44 | CONS ---
Date/Time of Note Date/Time of Note DATE: 04/23/17 TIME: 11:42 Assessment/Plan Assessment/Plan Additional Assessment/Plan 1. Post op right hip replacement, has not been seen by PT, rev with PT and orders placed. 2. Anemia, noted, labs still pending 3. BP is nl 4. Respir status is nl Consultation Date/Type/Reason Admit Date/Time Apr 21, 2017 at 05:44 Initial Consult Date 04/21/17 Type of Consultation: Pulmonary/critical care Detailed Summary Respiratory: No pain, No shortness of breath Cardiovascular: No chest pain, No orthopenea Gastrointestinal: no complaints Genitourinary: no complaints Musculoskeletal: bone/joint pain (mild right hip pain) Exam/Review of Systems Vital Signs Vitals Vital Signs Date Time Temp Pulse Resp B/P Pulse Ox O2 Delivery O2 Flow Rate FiO2 04/23/17 08:00 97.5 86 18 109/53 95 04/22/17 18:51 Room Air 04/22/17 08:00 2.0 04/22/17 03:35 30 Intake and Output 04/22/17 04/22/17 04/23/17 15:00 23:00 07:00 Intake Total 1730 ml 480 ml 820 ml Output Total 985 ml 375 ml 1000 ml Balance 745 ml 105 ml -180 ml Exam Neck: No jvd Respiratory: clear to auscultation Cardiovascular: regular rate and rhythm Gastrointestinal: soft Extremities: No edema (and no calf tend) Results Result Diagram: 04/22/17 0400 04/22/17 1315 Results 24 hrs Laboratory Tests Test 04/22/17 13:15 Potassium Level 4.4 Medications Medications Current Medications Losartan Potassium (Cozaar) 100 mg DAILY PO ; Start 04/22/17 at 09:00 Prednisone (Prednisone) 1.5 mg DAILY PO Last administered on 04/23/17 09:13; Admin Dose 1.5 MG; Start 04/22/17 at 09:00 Celecoxib (Celebrex) 200 mg DAILY PO Last administered on 04/22/17 09:17; Admin Dose 200 MG; Start 04/22/17 at 09:00 Tramadol HCl (Ultram) 50 mg Q6 PO Last administered on 04/23/17 11:31; Admin Dose 50 MG; Start 04/21/17 at 12:00; Stop 04/24/17 at 11:59 Oxycodone HCl (Roxicodone) 5 mg Q4H PRN PO PAIN LEVEL 1-3 Last administered on 04/23/17 10:11; Admin Dose 5 MG; Start 04/21/17 at 10:30 Oxycodone HCl (Roxicodone) 10 mg Q4H PRN PO PAIN LEVEL 4-7 Last administered on 04/22/17 20:23; Admin Dose 10 MG; Start 04/21/17 at 10:30 Hydromorphone HCl (Dilaudid) 1 mg Q3H PRN IV PAIN LEVEL 8-10 Last administered on 04/22/17 12:24; Admin Dose 1 MG; Start 04/21/17 at 10:30 Ondansetron HCl (Zofran Inj) 4 mg Q6H PRN IV NAUSEA AND/OR VOMITING; Start at 10:30 Bisacodyl (Dulcolax Supp) 10 mg Q12H PRN [place] CONSTIPATION; Start 04/21/17 at 10: 30 Magnesium Hydroxide (Milk Of Mag) 30 ml BID PRN PO CONSTIPATION; Start at 10:30 Sodium Biphosphate/ Sodium Phosphate (Fleet Enema) 133 ml DAILY PRN [place] CONSTIPATION; Start 04/21/17 at 10:30 Docusate Sodium (Colace) 100 mg BID PO Last administered on 04/23/17 09:14; Admin Dose 100 MG; Start 04/21/17 at 21:00 Diphenhydramine HCl (Benadryl) 25 mg Q6H PRN PO PRURITUS; Start 04/21/17 at 10: 30 Aspirin (Ecotrin) 325 mg BID PO Last administered on 04/23/17 09:14; Admin Dose 325 MG; Start 04/22/17 at 09:00 Pantoprazole (Protonix Tab) 40 mg BID@ PO Last administered on 04/23/17 06:16; Admin Dose 40 MG; Start 04/21/17 at 18:00 JOANN MALONE MD Apr 23, 2017 11:44
[2017-04-23 12:40] LABS: HEMATOCRIT 25.9 % (37.0-47.0); HEMOGLOBIN 8.1 g/dl (12.0-16.0)
[2017-04-23 12:54] LABS: CALCIUM 8.9 mg/dl (8.4-10.2); CREATININE 0.63 mg/dl (0.44-1.00); POTASSIUM 3.7 mmol/L (3.5-5.1)
[2017-04-23 19:12] VITALS: BP 131/63; RESP 20
--- NOTE | 2017-04-23 20:25 | PN ---
Date/Time of Note Date/Time of Note DATE: 04/23/17 TIME: 20:24 Assessment/Plan Lines/Catheters IV Catheter Type (from Nrsg): Saline Lock Veronica in Place (from Nrsg): No Assessment/Plan Assessment/Plan POD # 2. Stable. -Pain meds -OOB with PT -Hip precautions -ASA/SCDs -D/C planning: ? [facility] tomorrow Subjective 24 Hr Interval Summary Having some pain. Relieved with pain meds. Exam/Review of Systems Vital Signs Vitals Vital Signs Date Time Temp Pulse Resp B/P Pulse Ox O2 Delivery O2 Flow Rate FiO2 04/23/17 19:26 2.0 04/23/17 19:12 98.6 92 20 131/63 96 04/22/17 18:51 Room Air 04/22/17 03:35 30 Intake and Output 04/22/17 04/22/17 04/23/17 15:00 23:00 07:00 Intake Total 1730 ml 480 ml 820 ml Output Total 985 ml 375 ml 1000 ml Balance 745 ml 105 ml -180 ml Exam Free Text/Dictation Dressing dry Incision clean, dry, and intact without redness or drainage Thigh soft 5/5 Quadriceps, Tibialis Anterior, EHL, Gastroc Soleus, Peroneals Normal sensation Palpable DP/PT, CR < 2 Sec No distal edema Results Result Diagram: 04/23/17 1155 04/23/17 1155 SRUTHI CUENCA MD Apr 23, 2017 20:25
[2017-04-24] MEDS: traMADol 50 MG TAB PO SCH ×2 (00:23→06:09)
[2017-04-24 05:27] LABS: HEMATOCRIT 26.3 % (37.0-47.0); HEMOGLOBIN 8.3 g/dl (12.0-16.0)
[2017-04-24 05:43] LABS: IRON 12 ug/dl (35-150)
[2017-04-24 05:52] LABS: TOTAL IRON BINDING CAPACITY 226 ug/dl (241-421)
[2017-04-24 05:59] LABS: CALCIUM 8.9 mg/dl (8.4-10.2); CREATININE 0.64 mg/dl (0.44-1.00); POTASSIUM 3.7 mmol/L (3.5-5.1)
[2017-04-24] MEDS: PANTOPRAZOLE (EC) 40 MG TAB PO SCH (06:09)
[2017-04-24 08:00] VITALS: BP 120/56; RESP 18
--- NOTE | 2017-04-24 08:40 | CONS ---
Date/Time of Note Date/Time of Note DATE: 04/24/17 TIME: 08:39 Assessment/Plan Assessment/Plan Additional Assessment/Plan 1. Post op right hip replacement,doing well 2. Anemia, iron studies noted, iron started 3. BP is nl 4. OK to dc per ortho and PT Consultation Date/Type/Reason Admit Date/Time Apr 21, 2017 at 05:44 Initial Consult Date 04/21/17 Type of Consultation: Pulmonary/critical care Detailed Summary Respiratory: No cough, No shortness of breath Cardiovascular: No chest pain, No orthopenea Gastrointestinal: no complaints Genitourinary: no complaints Musculoskeletal: bone/joint pain (mild right hip pain) Exam/Review of Systems Vital Signs Vitals Vital Signs Date Time Temp Pulse Resp B/P Pulse Ox O2 Delivery O2 Flow Rate FiO2 04/24/17 08:00 98.0 86 18 120/56 96 04/24/17 01:26 2.0 04/22/17 18:51 Room Air 04/22/17 03:35 30 Intake and Output 04/23/17 04/23/17 04/24/17 15:00 23:00 07:00 Intake Total 600 ml 380 ml Balance 600 ml 380 ml Exam Neck: No jvd Respiratory: clear to auscultation Cardiovascular: regular rate and rhythm Gastrointestinal: soft Extremities: No edema (and no calf tend) Results Result Diagram: 04/24/17 0435 04/24/17 0435 Results 24 hrs Laboratory Tests Test 04/23/17 11:55 04/24/17 04:35 Hemoglobin 8.1 L 8.3 L Hematocrit 25.9 L 26.3 L Sodium Level 134 L 134 L Potassium Level 3.7 3.7 Chloride Level 97 95 L Carbon Dioxide Level 30 34 H Anion Gap 11 9 Blood Urea Nitrogen 13 10 Creatinine 0.63 0.64 Glucose Level 120 111 Calcium Level 8.9 8.9 Iron Level 12 L Total Iron Binding Capacity 226 L Percent Iron Saturation 5 L Ferritin 145.0 Medications Medications Current Medications Losartan Potassium (Cozaar) 100 mg DAILY PO ; Start 04/22/17 at 09:00 Prednisone (Prednisone) 1.5 mg DAILY PO Last administered on 04/23/17 09:13; Admin Dose 1.5 MG; Start 04/22/17 at 09:00 Celecoxib (Celebrex) 200 mg DAILY PO Last administered on 04/22/17 09:17; Admin Dose 200 MG; Start 04/22/17 at 09:00 Tramadol HCl (Ultram) 50 mg Q6 PO Last administered on 04/24/17 06:09; Admin Dose 50 MG; Start 04/21/17 at 12:00; Stop 04/24/17 at 11:59 Oxycodone HCl (Roxicodone) 5 mg Q4H PRN PO PAIN LEVEL 1-3 Last administered on 04/23/17 10:11; Admin Dose 5 MG; Start 04/21/17 at 10:30 Oxycodone HCl (Roxicodone) 10 mg Q4H PRN PO PAIN LEVEL 4-7 Last administered on 04/23/17 20:05; Admin Dose 10 MG; Start 04/21/17 at 10:30 Hydromorphone HCl (Dilaudid) 1 mg Q3H PRN IV PAIN LEVEL 8-10 Last administered on 04/22/17 12:24; Admin Dose 1 MG; Start 04/21/17 at 10:30 Ondansetron HCl (Zofran Inj) 4 mg Q6H PRN IV NAUSEA AND/OR VOMITING; Start at 10:30 Bisacodyl (Dulcolax Supp) 10 mg Q12H PRN [place] CONSTIPATION; Start 04/21/17 at 10: 30 Magnesium Hydroxide (Milk Of Mag) 30 ml BID PRN PO CONSTIPATION; Start at 10:30 Sodium Biphosphate/ Sodium Phosphate (Fleet Enema) 133 ml DAILY PRN [place] CONSTIPATION; Start 04/21/17 at 10:30 Docusate Sodium (Colace) 100 mg BID PO Last administered on 04/23/17 20:05; Admin Dose 100 MG; Start 04/21/17 at 21:00 Diphenhydramine HCl (Benadryl) 25 mg Q6H PRN PO PRURITUS; Start 04/21/17 at 10: 30 Aspirin (Ecotrin) 325 mg BID PO Last administered on 04/23/17 20:05; Admin Dose 325 MG; Start 04/22/17 at 09:00 Pantoprazole (Protonix Tab) 40 mg BID@ PO Last administered on 04/24/17 06:09; Admin Dose 40 MG; Start 04/21/17 at 18:00 JOANN MALONE MD Apr 24, 2017 08:40
--- NOTE | 2017-04-24 08:59 | PN ---
Date/Time of Note Date/Time of Note DATE: 04/24/17 TIME: 08:58 Assessment/Plan Lines/Catheters IV Catheter Type (from Nrsg): Saline Lock Veronica in Place (from Nrsg): No Assessment/Plan Assessment/Plan POD # 3. Stable. -OOB with PT -Pain meds -ASA/SCDs -Hip precautions -Ok to d/c to [facility] -F/u with me in 1 week Subjective 24 Hr Interval Summary Comfortable. Minimal pain. Exam/Review of Systems Vital Signs Vitals Vital Signs Date Time Temp Pulse Resp B/P Pulse Ox O2 Delivery O2 Flow Rate FiO2 04/24/17 08:00 98.0 86 18 120/56 96 04/24/17 01:26 2.0 04/22/17 18:51 Room Air 04/22/17 03:35 30 Intake and Output 04/23/17 04/23/17 04/24/17 15:00 23:00 07:00 Intake Total 600 ml 380 ml Balance 600 ml 380 ml Exam Free Text/Dictation Dressing dry Thigh soft 5/5 Quadriceps, Tibialis Anterior, EHL, Gastroc Soleus, Peroneals Normal sensation Palpable DP/PT, CR < 2 Sec No distal edema Results Result Diagram: 04/24/17 0435 04/24/17 0435 SRUTHI CUENCA MD Apr 24, 2017 08:59
[2017-04-24] MEDS ORDERED: FERROUS FUMARATE (SR) TAB PO SCH (09:00)
[2017-04-24] MEDS ORDERED: ASPI325T32 PO (09:01)
[2017-04-24] MEDS ORDERED: TRAM50TA2 PO (09:01)
[2017-04-24] MEDS ORDERED: OXYC-481 PO (09:01)
[2017-04-24] MEDS ORDERED: PANT40TA4 PO (09:01)
[2017-04-24] MEDS: CELECOXIB 200 MG CAP PO SCH (09:04)
[2017-04-24] MEDS: ASPIRIN (EC) 325 MG TAB PO SCH (09:04)
[2017-04-24] MEDS: DOCUSATE SODIUM 100 MG CAP PO SCH (09:04)
[2017-04-24] MEDS: predniSONE 1 MG TAB PO SCH (09:05)
[2017-04-24] MEDS: LOSARTAN 50 MG TAB PO SCH (09:05)
== END 2017-04-24 18:00 | DRG 470 ==
LOC: REC 05:44 → MS1 11:53 → ICU 14:46 → MS1 04-22 18:37
PROVIDERS: ADMIT Orthopaedic Surgery; ATTEND Orthopaedic Surgery
PROC: 5A09357 Assistance with Respiratory Ventilation, Less than 24 Consecutive Hours, Continuous Positive Airway Pressure (ICD-10-PCS; 2017-04-21)
PROC: 0SR904Z Replacement of Right Hip Joint with Ceramic on Polyethylene Synthetic Substitute, Open Approach (ICD-10-PCS; principal; 2017-04-22)
DX: M16.11 Unilateral primary osteoarthritis, right hip (principal); R06.89 Other abnormalities of breathing; D64.9 Anemia, unspecified; M06.9 Rheumatoid arthritis, unspecified; E66.9 Obesity, unspecified; I10 Essential (primary) hypertension; R09.02 Hypoxemia; M79.7 Fibromyalgia; G47.30 Sleep apnea, unspecified; Z88.0 Allergy status to penicillin; Z92.241 Personal history of systemic steroid therapy; Z87.39 Personal history of other diseases of the musculoskeletal system and connective tissue; Z68.34 Body mass index [BMI] 34.0-34.9, adult
CPT/HCPCS: 36600; 72170; 73530; 80048; 82728; 82803; 83540; 83735; 84100; 84132; 85014; 85018; 86850; 86900; 86901; 86920; 87081; 88304; 88311; 94660; 97110; 97162; 97530; C1776; C9290; J0131; J0171; J0735; J1100; J1170; J1644; J1885; J2250; J2274; J2310; J2405; J2765; J3010; J3370; J3480; J7040; J7120; J7512

== ENCOUNTER → 2017-05-15 | Outpatient (CLI) | payer MEDICARE, OTHER ==
[~2017-05-15] MED LIST: ASPI325T32 PO; LOSA100T7 PO; OXYC-481 PO; PANT40TA4 PO; PRED1TAB17 PO; TRAM50TA2 PO
--- NOTE | 2017-05-15 14:43 | PN ---
Date/Time of Note Date/Time of Note DATE: 05/15/17 TIME: 14:39 Assessment/Plan VTE Prophylaxis VTE Prophylaxis Intervention: ambulation, other Assessment/Plan Assessment/Plan ASSESSMENT: 3-1/2 weeks status post right posterior total hip arthroplasty PLAN: The peter were removed today and the Steri-Strips were applied. Given that she was started on Xarelto by her critical care nurse practitioner, it was recommended she speak to her critical care nurse practitioner regarding discontinuing Xarelto or her baby aspirin. She should take the medications in the meantime until she speaks with them. In regards to her right hip, she is to continue physical therapy as tolerated in hopes of transitioning out of a wheelchair and begin using a front wheeled walker. We emphasized the importance of keeping her postoperative visits and following the postoperative protocol. This will help optimize her outcome and ensure that there are no complications. She has missed several appointments so far in a short period of time and we stressed the importance of maintaining them as scheduled. We will see her back in 4-6 weeks for repeat evaluation. If there is any complications in the meantime, she will call the office per Subjective 24 Hr Interval Summary Free Text/Dictation The patient presents today for a follow-up evaluation on her right hip. She is now almost 1 month status post right posterior total hip arthroplasty. She missed multiple postoperative appointments and stated "it was too hot". Additionally she no showed another postoperative visit. She is here today however for her first evaluation. She is currently at home but has had limited ambulation. She does have some mild pain to the right hip but it is improving overall. She denies any fevers or chills. She states she was started on Xarelto for DVT prophylaxis by her critical care nurse practitioner and has only been taking a baby aspirin instead of a 325 mg tablet twice daily as recommended. She is here today with her son for a postoperative evaluation. Exam/Review of Systems Exam On exam today, she is alert and oriented 4, and in no acute distress. She has limited ambulation and is in a wheelchair. Exam of the incision demonstrates it to be clean dry and intact. [place] are in place. There is no erythema, pus , warmth, or drainage noted. She does have mild pain with passive range of motion of the right hip joint. The compartments are otherwise soft. Homans sign is negative. She is neurovascularly intact distally. IMAGING: X-rays of the right hip were obtained today and reviewed with Dr. Broderick. They demonstrate anatomic alignment with no fractures or dislocations identified DEBRA MCINTYRE PA-C May 15, 2017 14:43
--- NOTE | 2017-05-15 16:13 | RADRPT ---
PROCEDURE: XR Right hip and pelvis. CLINICAL INDICATION: Right hip pain. Pelvic pain. Postop. TECHNIQUE: Two views. Frontal pelvis and lateral right hip. COMPARISON: 04/21/2017. FINDINGS: There is no fracture or dislocation. Right lateral skin peter are noted. There is a right hip total arthroplasty which appears satisfactory. There are degenerative changes of the left hip with joint space narrowing, osteophytes, subarticular sclerosis, and small subarticular cysts. There is no lytic or blastic lesion. The sacroiliac joints are unremarkable. IMPRESSION: 1. Satisfactory postoperative appearance of the right hip. 2. 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 3. Right lateral skin peter. RPTAT: QQ .Anastacio Cat MD, MD Date Time Electronically viewed and signed by .Anastacio Cat MD, on 05/15/2017 16:13 .R/
== END | disposition home or self-care (01) ==
LOC: HKI 13:17
PROVIDERS: ATTEND Orthopaedic Surgery
DX: Z47.1 Aftercare following joint replacement surgery (principal); Z96.641 Presence of right artificial hip joint
CPT/HCPCS: 72170; 73501

== ENCOUNTER → 2017-06-12 | Outpatient (CLI) | payer MEDICARE, OTHER ==
--- NOTE | 2017-06-15 07:31 | RADRPT ---
PROCEDURE: XR Right hip and pelvis. CLINICAL INDICATION: Right hip pain. Pelvic pain. Postop. TECHNIQUE: Two views. Frontal pelvis and frontal right hip. COMPARISON: 05/15/2017. FINDINGS: There is no fracture or dislocation. Right lateral skin peter have been removed. There is a right hip total arthroplasty which appears satisfactory. There are degenerative changes of the left hip with joint space narrowing, osteophytes, subarticular sclerosis, and small subarticular cysts. There is no lytic or blastic lesion. The upper pelvis is not completely included on the image. IMPRESSION: 1. Satisfactory postoperative appearance of the right hip. 2. 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 RPTAT: QQ .Anastacio Cat MD, MD Date Time Electronically viewed and signed by .Anastacio Cat MD, on 06/15/2017 07:31 .R/
== END | disposition home or self-care (01) ==
LOC: HKI 13:38
PROVIDERS: ATTEND Orthopaedic Surgery
DX: M16.11 Unilateral primary osteoarthritis, right hip (principal); Z09 Encounter for follow-up examination after completed treatment for conditions other than malignant neoplasm; Z96.641 Presence of right artificial hip joint; Z88.0 Allergy status to penicillin
CPT/HCPCS: 73502